=== PATIENT | female | born 2000 | race American Indian/Alaskan Native ===

== ENCOUNTER 2024-02-03 16:56 | Observation (INO) | payer MEDICAID ==
[2024-02-03] MEDS: Lactated Ringers 1,000 ML IV ONE (18:15)
[2024-02-03 18:43] LABS: APPEARANCE,URINE CLEAR (CLEAR); BILIRUBIN,URINE NEGATIVE (NEGATIVE); COLOR,URINE YELLOW (YELLOW); GLUCOSE,URINE NEGATIVE (NEGATIVE); KETONES,URINE NEGATIVE (NEGATIVE); LEUKOCYTE ESTERASE,URINE SMALL (NEGATIVE); NITRITE,URINE NEGATIVE (NEGATIVE); OCCULT BLOOD,URINE NEGATIVE (NEGATIVE); PROTEIN,URINE NEGATIVE (NEGATIVE); UROBILINOGEN,URINE 0.2 mg/dL (0.2-1.0)
[2024-02-03 18:55] LABS: BACTERIA,URINE FEW /HPF (0-FEW/HPF); EPITHELIAL CELLS,URINE FEW /HPF (NOT SEEN); MUCUS,URINE RARE /LPF (NOT SEEN); RBC,URINE NOT SEEN /HPF (0-5)
[2024-02-03] MEDS: metroNIDAZOLE 250 MG Tab PO SCH (20:24)
[2024-02-03] MEDS: NIFEdipine 10 MG Cap PO SCH ×2 (21:04→23:06)
[2024-02-03] MEDS ORDERED: Calcium Gluconate 10% 1 GM/10 ML SDV IVPUSH PRN (22:32)
[2024-02-03] MEDS ORDERED: Ondansetron 4 MG/2 ML SDV IVPUSH PRN (22:34)
[2024-02-03] MEDS: Magnesium Sulfate/Water 4 GM in Premix Bag 1 BAG IV ONE (23:00)
[2024-02-03] MEDS: Betamethasone Acetate/Betamethasone Sod Phosphate 6 MG/1 ML MDV IM ONE (23:08)
[2024-02-03] MEDS: Magnesium Sulfate/Water 20 GM in Premix Bag 1 BAG IV SCH (23:20)
[2024-02-04] MEDS ORDERED: Naloxone 2 MG/2 ML Syringe IVPUSH PRN (06:39)
[2024-02-04] MEDS: fentaNYL 100 MCG/2 ML SDV IVPUSH ONE (07:13)
== END 2024-02-04 07:15 ==
LOC: DL.OBCHECK 16:56 → DL.OB 22:32
PROVIDERS: ADMIT Student in an Organized Health Care Education/Training Program; ATTEND Student in an Organized Health Care Education/Training Program
DX: O47.02 False labor before 37 completed weeks of gestation, second trimester (principal); Z3A.29 29 weeks gestation of pregnancy
CPT/HCPCS: 59025; 76817; 81001; 87081; 87210; 96365; 96372; 96375; 96376; A9270; G0378; J0702; J3010; J3475; J7120; 87077; 87186

== ENCOUNTER 2024-03-02 19:12 | Observation (INO) | payer MEDICAID ==
[2024-03-02] MEDS ORDERED: Sodium Chloride 0.9% 10 ML Syringe FLUSH PRN (20:37)
[2024-03-02 21:08] LABS: APPEARANCE,URINE SLIGHTLY CLOUDY (CLEAR); BILIRUBIN,URINE NEGATIVE (NEGATIVE); COLOR,URINE DARK YELLOW (YELLOW); GLUCOSE,URINE NEGATIVE (NEGATIVE); KETONES,URINE 40 (NEGATIVE); LEUKOCYTE ESTERASE,URINE TRACE (NEGATIVE); NITRITE,URINE NEGATIVE (NEGATIVE); OCCULT BLOOD,URINE NEGATIVE (NEGATIVE); PROTEIN,URINE NEGATIVE (NEGATIVE); UROBILINOGEN,URINE 0.2 mg/dL (0.2-1.0)
[2024-03-02] MEDS: Lactated Ringers 1,000 ML IV SCH (21:19)
[2024-03-02] MEDS: Acetaminophen 325 MG Tab PO PRN (21:20)
[2024-03-02 21:24] LABS: AMPHETAMINES,URINE NEGATIVE (NEGATIVE); BARBITURATES,URINE NEGATIVE (NEGATIVE); BENZODIAZEPINE,URINE NEGATIVE (NEGATIVE); MDMA (ECSTASY), URINE NEGATIVE (NEGATIVE); METHADONE,URINE NEGATIVE (NEGATIVE); METHAMPHETAMINES,URINE NEGATIVE (NEGATIVE); OPIATES,URINE NEGATIVE (NEGATIVE); OXYCODONE,URINE NEGATIVE (NEGATIVE); PHENCYCLIDINE,URINE NEGATIVE (NEGATIVE); TCA,URINE NEGATIVE (NEGATIVE)
[2024-03-02 21:48] LABS: BACTERIA,URINE FEW /HPF (0-FEW/HPF); EPITHELIAL CELLS,URINE MODERATE /HPF (NOT SEEN); MUCUS,URINE MODERATE /LPF (NOT SEEN); RBC,URINE 0-5 /HPF (0-5)
[2024-03-02 21:49] LABS: CREATININE,URINE RAND 245.45 mg/dL (No establ ref range); PROTEIN CREATININE RATIO,URINE 132.4 mg/g (<150.0); PROTEIN,URINE RANDOM 32.5 mg/dL (0.0-11.9)
[2024-03-02] MEDS: hydrOXYzine HCl 25 MG Tab PO ONE (22:47)
[2024-03-02] MEDS: NIFEdipine 10 MG Cap PO SCH (22:49)
[2024-03-02] MEDS: Sodium Chloride 0.9% 10 ML Syringe FLUSH SCH (22:50)
[2024-03-02] MEDS: Sodium Chloride 0.9% 1,000 ML IV ONE (23:24)
[2024-03-03] MEDS: NIFEdipine 10 MG Cap PO SCH (01:07)
[2024-03-03] MEDS: Cyclobenzaprine 10 MG Tab PO ONE (10:27)
[2024-03-04 10:46] LABS: C.TRACHOMATIS BY TMA Negative (Negative); N.GONORRHOEAE BY TMA Negative (Negative); SOURCE Genital
== END 2024-03-03 15:30 | disposition home or self-care (01) ==
LOC: DL.OBCHECK 19:12 → DL.OB 23:16
PROVIDERS: ADMIT Family Medicine; ATTEND Family Medicine
DX: O26.893 Other specified pregnancy related conditions, third trimester (principal); M54.50 Low back pain, unspecified; O62.9 Abnormality of forces of labor, unspecified; R10.2 Pelvic and perineal pain; Z79.899 Other long term (current) drug therapy; Z3A.33 33 weeks gestation of pregnancy
CPT/HCPCS: 36415; 76817; 80305; 81001; 82570; 82731; 82947; 84156; 87081; 87210; 87491; 87591; A9270; J7120; 87070; J3490

== ENCOUNTER 2024-03-07 14:15 | Emergency (ER) | payer MEDICAID ==
[2024-03-07] MEDS: diphenhydrAMINE 50 MG/ML SDV IVPUSH ONE (14:38)
[2024-03-07] MEDS: Dexamethasone 4 MG/ML SDV IVPUSH ONE (14:38)
[2024-03-07] MEDS: Sodium Chloride 0.9% 1,000 ML IV ONE (14:39)
[2024-03-07] MEDS: Famotidine 20 MG/2 ML SDV IVPUSH ONE (14:39)
== END 2024-03-07 16:36 | disposition home or self-care (01) ==
LOC: DL.ED 14:15
DX: O9A.213 Injury, poisoning and certain other consequences of external causes complicating pregnancy, third trimester (principal); T63.441A Toxic effect of venom of bees, accidental (unintentional), initial encounter; B85.0 Pediculosis due to Pediculus humanus capitis; Z79.899 Other long term (current) drug therapy; Z3A.00 Weeks of gestation of pregnancy not specified
CPT/HCPCS: 96361; 96374; 96375; 99282; J1100; J1200; J3490; J7030

== ENCOUNTER 2024-04-08 01:51 | Inpatient (IN) | payer MEDICAID ==
[2024-04-08 02:51] LABS: HEMATOCRIT 31.2 % (37.0-47.0); HEMOGLOBIN 9.9 g/dL (12.0-16.0); MEAN CORPUSCULAR HEMOGLOBIN 24.4 pg (27.0-34.0); MEAN CORPUSCULAR HGB CONC 31.7 g/dL (33.0-35.0); PLATELET COUNT,PLT 283 10^3/uL (150-450); RED BLOOD CELL COUNT 4.05 10^6/uL (4.2-5.4); WHITE BLOOD CELL COUNT,WBC 11.6 10^3/uL (5.0-10.0)
[2024-04-08 03:25] LABS: CREATININE,URINE RAND 17.39 mg/dL (No establ ref range); PROTEIN CREATININE RATIO,URINE 609.5 mg/g (<150.0); PROTEIN,URINE RANDOM 10.6 mg/dL (0.0-11.9)
[2024-04-08 03:31] LABS: ALBUMIN 2.2 g/dL (3.4-5.0); ANION GAP 13.7 mEq/L (7-13); BILIRUBIN TOTAL 0.2 mg/dL (0.2-1.0); BUN/CREATININE RATIO 20.5 (No establ ref range); CALCIUM 8.6 mg/dL (8.5-10.1); CREATININE 0.73 mg/dL (0.55-1.02); EST CRCL DRUG DOSING (CG) 125.26 mL/min; POTASSIUM,K 3.7 mmol/L (3.5-5.1); PROTEIN TOTAL,TP 6.7 g/dL (6.4-8.2)
[2024-04-08 03:38] LABS: A/G RATIO 0.49
[2024-04-08] MEDS ORDERED: Misoprostol 400 MCG (4 X 100 MCG TAB) RECTAL PRN (04:30)
[2024-04-08] MEDS ORDERED: Tranexamic Acid 1,000 MG in Sodium Chloride 0.9% 100 ML IV PRN (04:30)
[2024-04-08] MEDS ORDERED: Methylergonovine 0.2 MG/1 ML Amp IM PRN (04:30)
[2024-04-08] MEDS ORDERED: Carboprost Tromethamine 250 MCG/1 ML Amp IM PRN (04:30)
[2024-04-08] MEDS: Lactated Ringers 1,000 ML IV SCH (05:07)
[2024-04-08] MEDS: Penicillin G Potassium 5 MILLUNITS in Sodium Chloride 0.9% 100 ML IV ONE (05:08)
[2024-04-08] MEDS: Misoprostol 50 MCG (1/2 of 100 MCG) Tab PO ONE (05:09)
[2024-04-08] MEDS: Misoprostol 100 MCG Tab PO ONE (05:23)
[2024-04-08 08:35] LABS: BASOPHILS PERCENT AUTO 0.1 % (0.0-1.0); EOSINOPHILS PERCENT AUTO 1.9 % (1.0-3.0); MONOCYTES PERCENT AUTO 9.6 % (2-8); NEUTROPHILS PERCENT AUTO 67.4 % (42.2-75.2)
[2024-04-08] MEDS ORDERED: ceFAZolin 2 GM Vial ONE (09:00)
[2024-04-08] MEDS: Penicillin G Potassium 3 MILLUNITS in Sodium Chloride 0.9% 100 ML IV SCH (09:06)
[2024-04-08] MEDS: Misoprostol 100 MCG Tab PO PRN ×3 (09:06→19:30)
[2024-04-08] MEDS: Sodium Chloride 0.9% 10 ML Syringe FLUSH PRN (13:09)
[2024-04-08] MEDS: Acetaminophen 325 MG Tab PO PRN (13:15)
[2024-04-08] MEDS: fentaNYL 100 MCG/2 ML SDV IVPUSH PRN (15:57)
[2024-04-08] MEDS: fentaNYL 100 MCG/2 ML SDV ONE (16:07)
[2024-04-08] MEDS: Misoprostol 50 MCG (1/2 of 100 MCG) Tab ONE (19:58)
[2024-04-08] MEDS: hydrOXYzine HCl 25 MG Tab PO PRN (23:54)
[2024-04-09] MEDS: Misoprostol 50 MCG (1/2 of 100 MCG) Tab PO PRN (00:03)
[2024-04-09] MEDS: Oxytocin/Normal Saline 30 UNIT/500 ML BAG IV SCH (08:21)
[2024-04-09] MEDS: Ondansetron 4 MG/2 ML SDV IVPUSH PRN (11:40)
[2024-04-09] MEDS ORDERED: fentaNYL 100 MCG/2 ML SDV ONE (11:41)
[2024-04-09] MEDS ORDERED: ePHEDrine 50 MG/ML SDV IVPUSH PRN (12:21)
[2024-04-09] MEDS ORDERED: Phenylephrine HCl In 0.9% NaCl 1 MG/10 ML Syringe IVPUSH PRN (12:21)
[2024-04-09] MEDS: Terbutaline 1 MG/ML SDV SUBCUT ONE (12:22)
[2024-04-09] MEDS ORDERED: Ropivacaine 200 MG in Premix Bag 1 BAG EPIDUR SCH (12:30)
[2024-04-09] MEDS ORDERED: ceFAZolin 2 GM Vial ONE (12:59)
[2024-04-09] MEDS ORDERED: ceFAZolin 1 GM Vial ONE (12:59)
[2024-04-10] MEDS ORDERED: fentaNYL 100 MCG/2 ML SDV ONE (00:50)
[2024-04-10] MEDS: Oxytocin/Normal Saline 30 UNIT/500 ML BAG IV SCH (02:45)
[2024-04-10] MEDS ORDERED: Ondansetron 4 MG/2 ML SDV ONE (02:47)
[2024-04-10] MEDS ORDERED: Phenylephrine 1% 10 MG/ML SDV ONE (02:47)
[2024-04-10] MEDS ORDERED: Ketorolac 30 MG/ML SDV ONE (02:48)
[2024-04-10] MEDS ORDERED: Tranexamic Acid 1,000 MG/10 ML Vial ONE (02:48)
[2024-04-10] MEDS ORDERED: Ondansetron 4 MG/2 ML SDV IVPUSH PRN (02:51)
[2024-04-10] MEDS ORDERED: diphenhydrAMINE 50 MG/ML SDV IVPUSH PRN (02:51)
[2024-04-10] MEDS ORDERED: ePHEDrine 50 MG/ML SDV IVPUSH PRN (02:51)
[2024-04-10] MEDS ORDERED: Naloxone 2 MG/2 ML Syringe IVPUSH PRN (02:51)
[2024-04-10] MEDS ORDERED: Carboprost Tromethamine 250 MCG/1 ML Amp IM PRN (02:51)
[2024-04-10] MEDS ORDERED: Tranexamic Acid 1,000 MG in Sodium Chloride 0.9% 100 ML IV PRN (02:51)
[2024-04-10] MEDS ORDERED: Methylergonovine 0.2 MG/1 ML Amp IM PRN (02:51)
[2024-04-10] MEDS ORDERED: Misoprostol 400 MCG (4 X 100 MCG TAB) RECTAL PRN (02:51)
[2024-04-10] MEDS: Lidocaine 1% 30 ML SDV INJECT ONE (04:32)
[2024-04-10] MEDS: Lactated Ringers 1,000 ML IV ONE (04:32)
[2024-04-10] MEDS: Ketorolac 30 MG/ML SDV IVPUSH SCH ×2 (05:25→08:32)
[2024-04-10] MEDS: Acetaminophen 500 MG Tab PO ONE (05:59)
[2024-04-10] MEDS: Furosemide 20 MG/2 ML VIAL IVPUSH SCH (05:59)
[2024-04-10] MEDS: oxyCODONE 5 MG Tab PO ONE (06:00)
[2024-04-10] MEDS: Prenatal Multivitamin with Calcium/Folic Acid/Iron Tab PO SCH (08:30)
[2024-04-10] MEDS: Docusate Sodium 100 MG Cap PO PRN (08:30)
[2024-04-10] MEDS: Simethicone 80 MG Tab.Chew PO SCH (08:30)
[2024-04-10] MEDS: Lactated Ringers 1,000 ML IV SCH (08:50)
[2024-04-10 08:57] LABS: HEMOGLOBIN 9.5 g/dL (12.0-16.0); MEAN CORPUSCULAR HEMOGLOBIN 24.4 pg (27.0-34.0); MEAN CORPUSCULAR HGB CONC 31.7 g/dL (33.0-35.0); MEAN CORPUSCULAR VOLUME 77.1 fL (80-100); RED BLOOD CELL COUNT 3.89 10^6/uL (4.2-5.4); WHITE BLOOD CELL COUNT,WBC 14.2 10^3/uL (5.0-10.0)
[2024-04-10 09:16] LABS: ALBUMIN 1.8 g/dL (3.4-5.0); BILIRUBIN TOTAL 0.4 mg/dL (0.2-1.0); CALCIUM 8.3 mg/dL (8.5-10.1); CREATININE 0.77 mg/dL (0.55-1.02); EST CRCL DRUG DOSING (CG) 118.75 mL/min; PROTEIN TOTAL,TP 5.6 g/dL (6.4-8.2)
[2024-04-10 09:18] LABS: A/G RATIO 0.47
[2024-04-10] MEDS ORDERED: fentaNYL 100 MCG/2 ML SDV EPIDUR ONE (11:28)
[2024-04-10] MEDS: Acetaminophen 325 MG Tab PO PRN (16:28)
[2024-04-10] MEDS: Acetaminophen/oxyCODONE 325-5 MG Tab PO PRN ×2 (19:11→20:10)
[2024-04-11] MEDS: Ibuprofen 800 MG Tab PO SCH ×2 (03:18→03:55)
[2024-04-11] MEDS ORDERED: Furosemide 40 MG Tab PO SCH (09:00)
[2024-04-11] MEDS ORDERED: fentaNYL 100 MCG/2 ML SDV IV ONE (11:27)
[2024-04-12] MEDS: Measles, Mumps & Rubella Vaccine 0.5 ML SDV SUBCUT ONE (08:04)
== END 2024-04-13 16:42 | disposition home or self-care (01) | DRG 788 ==
LOC: DL.OBCHECK 01:51 → DL.OB 02:05 → OBSVTOIN 04-10 02:05 → INTOOBSV 04-10 02:05
PROVIDERS: ADMIT Obstetrics & Gynecology; ATTEND Obstetrics & Gynecology
PROC: 10D00Z1 Extraction of Products of Conception, Low, Open Approach (ICD-10-PCS; principal; 2024-04-10)
PROC: 10907ZC Drainage of Amniotic Fluid, Therapeutic from Products of Conception, Via Natural or Artificial Opening (ICD-10-PCS; 2024-04-10)
DX: O99.214 Obesity complicating childbirth (principal); Z37.0 Single live birth; O99.02 Anemia complicating childbirth; E66.01 Morbid (severe) obesity due to excess calories; O99.824 Streptococcus B carrier state complicating childbirth; Z3A.39 39 weeks gestation of pregnancy; O14.94 Unspecified pre-eclampsia, complicating childbirth; O76 Abnormality in fetal heart rate and rhythm complicating labor and delivery; O62.1 Secondary uterine inertia
CPT/HCPCS: 01967; 01968; 36415; 51702; 80053; 82570; 84156; 85025; 85027; 90471; 90707; A9270-GY; J1885; J1940; J2405; J2540; J2590; J3010; J3105; J3490; J7120

== ENCOUNTER 2024-08-06 13:20 | Emergency (ER) | payer MEDICAID ==
[2024-08-06] MEDS: Ketorolac 30 MG/ML SDV IM ONE (14:27)
[2024-08-06] MEDS: Orphenadrine 60 MG/2 ML Inj IM ONE (14:27)
[2024-08-06] MEDS: Take Home: Cyclobenzaprine 10 MG Tab, 4 Tab Pack PO ONE (14:35)
[2024-08-06] MEDS: Take Home: predniSONE 20 MG, 4 Tab Pack PO ONE (14:35)
== END 2024-08-06 14:46 | disposition home or self-care (01) ==
LOC: DL.ED 13:20
DX: M62.830 Muscle spasm of back (principal); J45.909 Unspecified asthma, uncomplicated; E66.9 Obesity, unspecified; Z91.030 Bee allergy status; Z79.899 Other long term (current) drug therapy; Z68.35 Body mass index [BMI] 35.0-35.9, adult
CPT/HCPCS: 72080; 96372; 99283; A9270; J1885; J2360